=== PATIENT | female | born 1985 | race Asian ===

== ENCOUNTER 2018-07-15 00:26 | Observation (INO) | payer OTHER ==
[2018-07-15 01:14] LABS: URINE APPEARANCE CLEAR; URINE BILIRUBIN NEGATIVE (<2.0 mg/dL); URINE COLOR COLORLESS; URINE GLUCOSE (UA) NEGATIVE (NEGATIVE); URINE KETONE NEGATIVE (NEGATIVE); URINE LEUK ESTERASE NEGATIVE (NEGATIVE); URINE NITRITE NEGATIVE (NEGATIVE); URINE PROTEIN NEGATIVE (NEGATIVE); URINE UROBILINOGEN NEGATIVE mg/dL (0.2-1.0)
[2018-07-15 01:15] LABS: HCG,QUALITATIVE URINE Negative
[2018-07-15 01:44] LABS: BASO % 1.3 % (0-2.0); EOS % 0.7 % (0-4.5); HEMATOCRIT 28.3 % (32.4-45.2); HEMOGLOBIN 9.1 GM/dL (10.7-15.3); LYMPH % 46.2 % (8-40); MCH 23.1 pg (25.7-33.7); MCHC 32.2 g/dl (32.0-36.0); MEAN CELL VOLUME 71.6 fl (80-96); MEAN PLT VOLUME 9.2 fl (7.5-11.1); MONO % 11.5 % (3.8-10.2); NEUT % 40.3 % (42.8-82.8); PLATELET COUNT 133 K/MM3 (134-434); RBC 3.96 M/mm3 (3.60-5.2); RDW 18.6 % (11.6-15.6)
[2018-07-15 01:53] LABS: WHITE BLOOD COUNT 1.9 K/mm3 (4.0-10.0)
[2018-07-15 02:06] LABS: ALBUMIN 3.7 g/dl (3.4-5.0); ALK PHOS 36 U/L (45-117); ANION GAP 8 MMOL/L (8-16); BILIRUBIN,TOTAL 0.2 mg/dL (0.2-1); BLOOD UREA NITROGEN 12 mg/dL (7-18); CALCIUM 8.2 mg/dL (8.5-10.1); CHLORIDE 105 mmol/L (98-107); CO2 28 mmol/L (21-32); CREATININE 0.4 mg/dL (0.55-1.3); GLUCOSE,RANDOM 102 mg/dL (74-106); LIPASE 207 U/L (73-393); POTASSIUM 3.6 mmol/L (3.5-5.1); SGOT/AST 19 U/L (15-37); SGPT/ALT 22 U/L (13-61); SODIUM 141 mmol/L (136-145); TOT PROT 6.8 g/dl (6.4-8.2)
[2018-07-15 02:34] LABS: BASO % 1.5 % (0-2.0); EOS % 0.6 % (0-4.5); HEMATOCRIT 26.3 % (32.4-45.2); HEMOGLOBIN 8.5 GM/dL (10.7-15.3); LYMPH % 42.3 % (8-40); MCH 23.1 pg (25.7-33.7); MCHC 32.4 g/dl (32.0-36.0); MEAN CELL VOLUME 71.3 fl (80-96); MEAN PLT VOLUME 9.4 fl (7.5-11.1); MONO % 11.1 % (3.8-10.2); NEUT % 44.5 % (42.8-82.8); PLATELET COUNT 128 K/MM3 (134-434); RBC 3.69 M/mm3 (3.60-5.2); RDW 18.7 % (11.6-15.6)
[2018-07-15 02:40] LABS: WHITE BLOOD COUNT 1.9 K/mm3 (4.0-10.0)
--- NOTE | 2018-07-15 03:44 | PDOC ---
History of Present Illness - General Chief Complaint: Pain, Acute Stated Complaint: FEVER Time Seen by Provider: 07/15/18 01:03 History Source: Patient Exam Limitations: No Limitations - History of Present Illness Initial Comments: 07/15/18 03:43 Best Contact: PCP: Ryanx: 2017:Thyroid cancer Pshx: left Hemithyroidectomy Allergies: NKDA FH: Father/HTN (alive @63), Mother/healthy (alive@58) Social Hx: Cigarettes/ 0 Alcohol/ Drugs/ LMP: cyracom: [id number] 32-year-old female presents to the emergency department complaining of left- sided pelvic pain. Patient states the pain is described as 8/10 pressure-like nonradiating intermittent discomfort. There are no alleviating or exacerbating factors. Patient endorses fever 3 days, MAXIMUM TEMPERATURE 103.0 oral temp with chills but denies nausea/vomiting, dizziness, headache, lightheadedness, weakness, chest pain, shortness of breath, neck/back pains, flank pains, urinary symptoms: Urgency, frequency, hesitancy, hematuria. Patient denies left upper quadrant pain, unexplained ecchymosis or petechiae. Patient denies using any penicillin, sulfonamide, diuretic, phenothiazide.Patient denies feeling weak , unexplainable weight loss, nosebleeds, frequent infections. Patient states approximately one week ago she had a colonoscopy because she is been experiencing constipation for approximately one year . Her weight calculator removed a 4 cm polyp. Earlier this evening, patient went to her weight calculator to go over the report. He informed her that it was NOTcancerous. Pt had her colonoscopy in [place] x7d ago. Patient reports her first cousin on her father's side (father's brothers son) was dx and from Leukemia at a young age. Denies recent travel. Pt speaks Mandarin/Maori. Past History - Past Medical History Allergies/Adverse Reactions: Allergies Allergy/AdvReac Type Severity Reaction Status Date / Time No Known Allergies Allergy Verified 07/15/18 00:53 Home Medications: Ambulatory Orders NK [No Known Home Medication] 07/15/18 COPD: No Other medical history: Unspecified CA - Suicide/Smoking/Psychosocial Hx Smoking History: Never smoked Hx Alcohol Use: No Drug/Substance Use Hx: No Review of Systems - Review of Systems Able to Perform ROS?: Yes Comments:: 07/15/18 03:43 CONSTITUTIONAL: Absent: fever, chills, diaphoresis, generalized weakness, malaise, loss of appetite HEENT: Absent: rhinorrhea, nasal congestion, throat pain, throat swelling, difficulty swallowing, mouth swelling, ear pain, eye pain, visual Changes CARDIOVASCULAR: Absent: chest pain, loss of consciousness, palpitations, irregular heart rate, peripheral edema RESPIRATORY: Absent: cough, shortness of breath, dyspnea with exertion, orthopnea, wheezing, stridor, hemoptysis GASTROINTESTINAL: +Left pelvic pain Absent: abdominal pain, abdominal distension, nausea, vomiting, diarrhea, constipation, melena, hematochezia GENITOURINARY: Absent: dysuria, frequency, urgency, hesitancy, hematuria, flank pain, genital pain MUSCULOSKELETAL: Absent: myalgia, arthralgia, joint swelling SKIN: Absent: rash, itching, pallor HEMATOLOGIC/IMMUNOLOGIC: Absent: easy bleeding, easy bruising, lymphadenopathy, frequent infections ENDOCRINE: Absent: unexplained weight gain, unexplained weight loss, heat intolerance, cold intolerance NEUROLOGIC: Absent: headache, focal weakness or paresthesias, dizziness, unsteady gait, seizure, mental status changes, bladder or bowel incontinence PSYCHIATRIC: Absent: anxiety, depression, suicidal or homicidal ideation, hallucinations. Is the patient limited Vietnamese proficient: No *Physical Exam - Vital Signs Last Vital Signs Temp Pulse Resp BP Pulse Ox 98.4 F 64 20 109/72 100 07/15/18 01:36 07/15/18 01:36 07/15/18 00:28 07/15/18 01:36 07/15/18 01:36 - Physical Exam Comments: 07/15/18 03:43 GENERAL: Well developed, well nourished. Awake and alert. No acute distress. HEENT: Normocephalic, atraumatic. PERRLA, EOMI. No conjunctival pallor. Sclera are non- icteric. Moist mucous membranes. Oropharynx is clear. NECK: Supple. Full ROM. No JVD. Carotid pulses 2+ and symmetric, without bruits. No thyromegaly. No lymphadenopathy. CARDIOVASCULAR: Regular rate and rhythm. No murmurs, rubs, or gallops. Distal pulses are 2+ and symmetric. PULMONARY: No evidence of respiratory distress. Lungs clear to auscultation bilaterally. No wheezing, rales or rhonchi. ABDOMINAL: +Left pelvic pain on deep palp Soft. Non-distended. No rebound or guarding. No organomegaly. Normoactive bowel sounds. MUSCULOSKELETAL Normal range of motion at all joints. No bony deformities or tenderness. No CVA tenderness. EXTREMITIES: No cyanosis. No clubbing. No edema. No calf tenderness. SKIN: Warm and dry. Normal capillary refill. No rashes. No jaundice. NEUROLOGICAL: Alert, awake, appropriate. Cranial nerves 2-12 intact. No deficits to light touch and temperature in face, upper extremities and lower extremities. No motor deficits in the in face, upper extremities and lower extremities. Normoreflexic in the upper and lower extremities. Normal speech. Toes are down- going bilaterally. Gait is normal without ataxia. PSYCHIATRIC: Cooperative. Good eye contact. Appropriate mood and affect. Moderate Sedation - Procedure Monitoring Vital Signs: Procedure Monitoring Vital Signs Temperature 98.4 F 07/15/18 01:36 Pulse Rate 64 07/15/18 01:36 Respiratory Rate 20 07/15/18 00:28 Blood Pressure 109/72 07/15/18 01:36 O2 Sat by Pulse Oximetry (%) 100 07/15/18 01:36 ED Treatment Course - LABORATORY CBC & Chemistry Diagram: 07/15/18 02:07 07/15/18 01:20 - ADDITIONAL ORDERS Additional order review: Laboratory Results 07/15/18 07/15/18 01:20 00:49 Sodium 141 Potassium 3.6 Chloride 105 Carbon Dioxide 28 Anion Gap 8 BUN 12 Creatinine 0.4 L Creat Clearance w eGFR 182.72 Random Glucose 102 Calcium 8.2 L Total Bilirubin 0.2 AST 19 ALT 22 Alkaline Phosphatase 36 L Total Protein 6.8 Albumin 3.7 Lipase 207 Urine Color Colorless Urine Appearance Clear Urine pH 7.0 Ur Specific [place] 1.004 L Urine Protein Negative Urine Glucose (UA) Negative Urine Ketones Negative Urine Blood Negative Urine Nitrite Negative Urine Bilirubin Negative Urine Urobilinogen Negative Ur Leukocyte Esterase Negative Urine HCG, Qual Negative 07/15/18 07/15/18 02:07 01:20 RBC 3.69 3.96 MCV 71.3 L 71.6 L MCHC 32.4 32.2 RDW 18.7 H 18.6 H MPV 9.4 9.2 Neutrophils % 44.5 40.3 L Lymphocytes % 42.3 H 46.2 H Monocytes % 11.1 H 11.5 H Eosinophils % 0.6 0.7 Basophils % 1.5 1.3 - RADIOLOGY Radiology Studies Ordered: Category Date Time Status ABDOMEN & PELVIS CT W/O CONTR [CT] Stat CT Scan 07/15/18 02:08 Taken Radiograph Interpretation: 07/15/18 04:32 Transvaginal US: Neg ovarian torsion CT abd/pelvis w/o po and IV contrast: Nl *DC/Admit/Observation/Transfer Diagnosis at time of Disposition: Pelvic pain Leukopenia Qualifiers: Leukopenia type: unspecified Qualified Code(s): D72.819 - Decreased white blood cell count, unspecified - Discharge Dispostion Condition at time of disposition: Stable Decision to Admit order: Yes - Referrals - Patient Instructions - Post Discharge Activity Progress Note - Progress Note Progress Note: 0341hrs:Called [facility] and letter paster on [employer] [facility]. 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 I explained to the patient that some cases are easily diagnosis but others are not. Patient wanted a definitive diagnosis. Patient Stating that she had repeat blood draw shortly after the initial blood draw. I explained to the patient that her WBC was 1.9 and a had to be repeated for confirmation. I explained to the patient that we have to get blood cultures, influenza, urine culture. This is to rule out reasons of her leukopenia 0632hrs: Called Dr. Los Wood/ID for a consult [phone] 1911hrs: Spoke to Dr. Tadeo/covering ID service. Will consult pt If patient has a fever, ZOSYN IV
--- NOTE | 2018-07-15 04:11 | PDOC ---
*Physical Exam - Vital Signs Last Vital Signs Temp Pulse Resp BP Pulse Ox 98.4 F 64 20 109/72 100 07/15/18 01:36 07/15/18 01:36 07/15/18 00:28 07/15/18 01:36 07/15/18 01:36 ED Treatment Course - LABORATORY CBC & Chemistry Diagram: 07/15/18 02:07 07/15/18 01:20 - ADDITIONAL ORDERS Additional order review: Laboratory Results 07/15/18 07/15/18 01:20 00:49 Sodium 141 Potassium 3.6 Chloride 105 Carbon Dioxide 28 Anion Gap 8 BUN 12 Creatinine 0.4 L Creat Clearance w eGFR 182.72 Random Glucose 102 Calcium 8.2 L Total Bilirubin 0.2 AST 19 ALT 22 Alkaline Phosphatase 36 L Total Protein 6.8 Albumin 3.7 Lipase 207 Urine Color Colorless Urine Appearance Clear Urine pH 7.0 Ur Specific [place] 1.004 L Urine Protein Negative Urine Glucose (UA) Negative Urine Ketones Negative Urine Blood Negative Urine Nitrite Negative Urine Bilirubin Negative Urine Urobilinogen Negative Ur Leukocyte Esterase Negative Urine HCG, Qual Negative 07/15/18 07/15/18 02:07 01:20 RBC 3.69 3.96 MCV 71.3 L 71.6 L MCHC 32.4 32.2 RDW 18.7 H 18.6 H MPV 9.4 9.2 Neutrophils % 44.5 40.3 L Lymphocytes % 42.3 H 46.2 H Monocytes % 11.1 H 11.5 H Eosinophils % 0.6 0.7 Basophils % 1.5 1.3 Medical Decision Making - Medical Decision Making 07/15/18 04:10 Patient Name: SUNIL SALEEM THIS IS A PRELIMINARY REPORT FROM [employer] DATE OF SERVICE: 2018-07-15 03:02:07 IMAGES: [id number] EXAM: CT ABDOMEN \T\ PELVIS CT W/O CONTR HISTORY: Abdominal pain COMPARISON: None. FINDINGS: Abdomen Liver: Normal Spleen: Normal Pancreas: Normal Gallbladder: Normal Stomach: Normal Small bowel: Normal Large bowel: Normal Appendix: Normal Adrenals:Normal Kidneys: Normal Vascular: Normal Lymphatic: Normal Peritoneal: No free peritoneal air or fluid Pelvis: Uterus: normal Rectum: Normal Bladder: Normal The inferior thorax: Normal General: Skeletal: Normal Abdominal wall: Normal IMPRESSION: No acute findings 07/15/18 04:11 Patient Name: SUNIL SALEEM THIS IS A PRELIMINARY REPORT FROM [employer] DATE OF SERVICE: 2018-07-15 02:21:22 IMAGES: [id number] EXAM: TRANSVAGINAL ULTRASOUND US HISTORY: Pelvic pain COMPARISON: None. FINDINGS: Uterus measures 10.3 cm in length. The endometrium is 12 mm. Right ovary measures 4.0 x 2.3 x 2.4 cm. Doppler imaging demonstrates positive vascular flow. The left ovary measures 3.7 x 1.9 x 3.3 cm. Doppler imaging demonstrates positive vascular flow There is a small amount of pelvic fluid IMPRESSION: No ovarian torsion *DC/Admit/Observation/Transfer Diagnosis at time of Disposition: Leukopenia, Pelvic pain - Discharge Dispostion Condition at time of disposition: Stable - Referrals - Patient Instructions - Post Discharge Activity
[2018-07-15] MEDS ORDERED: morphine CARPU-JECT 2 MG/1 ML DISP.SYRIN IVPUSH ONE (05:14)
[2018-07-15] MEDS ORDERED: ONDANSETRON 4 MG/2 ML VIAL IVPUSH ONE (05:14)
[2018-07-15] MEDS ORDERED: morphine SULFATE 4 MG/ML VIAL ONE (05:16)
[2018-07-15] MEDS ORDERED: ONDANSETRON 4 MG/2 ML VIAL ONE (05:16)
[2018-07-15 05:46] LABS: ANISOCYTOSIS 2+; MACROCYTOSIS 0; PLATELET ESTIMATE NORMAL
--- NOTE | 2018-07-15 08:29 | PN ---
Teaching Attending Note Name of Resident: Deandre Crum ATTENDING PHYSICIAN STATEMENT I saw and evaluated the patient. I reviewed the resident's note and discussed the case with the resident. I agree with the resident's findings and plan as documented. SUBJECTIVE: [facility] # [id number] Patient is a 32yo Female with PMhx of partial thyroidectomy (2016) who presents today due to L-sided pelvic pain and fevers noted at home. As per patient was sick 3 weeks prior and was diagnosed with Viral syndrome and was given Zpack that she completed the course. Presents today for having Left pelvic pain, patient had dinner and post dinner developed left pelvic pain. Presented to ED. for further care. Also was c/o having clear vaginal discharge , patient refused to have vaginal exam in ED. OBJECTIVE: Vital Signs Temperature 98.6 F 07/15/18 06:18 Pulse Rate 64 07/15/18 06:18 Respiratory Rate 18 07/15/18 06:18 Blood Pressure 105/68 07/15/18 06:18 O2 Sat by Pulse Oximetry (%) 99 07/15/18 06:18 GENERAL: Awake, alert, and fully oriented, in no acute distress. HEENT: NC/AT, PRACHI, sclera anicteric, no ulcerations of oral mucosa, no erythema or exudates of the posterior oropharynx, MMM Neck: Soft, supple, no lymphadenopathy, thyroidectomy scar noted LUNGS: CTA bilaterally. No wheezes, and no crackles. No accessory muscle use. HEART: RRR normal S1 and S2 without murmur ABDOMEN: Soft, left pelvic mild pain on palpation , ND, NR, minimal tenderness of lower pelvic/LLQ palpation, normoactive BS, no rebound, no masses, no splenomegaly or hepatomegaly per palpation. EXTREMITIES: 2+ radial pulses b/l, warm, well-perfused. No peripheral edema. PSYCHIATRIC: Cooperative. Good eye contact. Appropriate mood and affect. SKIN: Warm, dry, no rashes or lesions notedCBCD WBC 1.9 K/mm3 (4.0-10.0) L* 07/15/18 02:07 RBC 3.69 M/mm3 (3.60-5.2) 07/15/18 02:07 Hgb 8.5 GM/dL (10.7-15.3) L 07/15/18 02:07 Hct 26.3 % (32.4-45.2) L 07/15/18 02:07 MCV 71.3 fl (80-96) L 07/15/18 02:07 MCHC 32.4 g/dl (32.0-36.0) 07/15/18 02:07 RDW 18.7 % (11.6-15.6) H 07/15/18 02:07 Plt Count 128 K/MM3 (134-434) L 07/15/18 02:07 MPV 9.4 fl (7.5-11.1) 07/15/18 02:07 CMP Sodium 141 mmol/L (136-145) 07/15/18 01:20 Potassium 3.6 mmol/L (3.5-5.1) 07/15/18 01:20 Chloride 105 mmol/L (98-107) 07/15/18 01:20 Carbon Dioxide 28 mmol/L (21-32) 07/15/18 01:20 Anion Gap 8 MMOL/L (8-16) 07/15/18 01:20 BUN 12 mg/dL (7-18) 07/15/18 01:20 Creatinine 0.4 mg/dL (0.55-1.3) L 07/15/18 01:20 Creat Clearance w eGFR 182.72 (>60) 07/15/18 01:20 Random Glucose 102 mg/dL (74-106) 07/15/18 01:20 Calcium 8.2 mg/dL (8.5-10.1) L 07/15/18 01:20 Total Bilirubin 0.2 mg/dL (0.2-1) 07/15/18 01:20 AST 19 U/L (15-37) 07/15/18 01:20 ALT 22 U/L (13-61) 07/15/18 01:20 Alkaline Phosphatase 36 U/L (45-117) L 07/15/18 01:20 Total Protein 6.8 g/dl (6.4-8.2) 07/15/18 01:20 Albumin 3.7 g/dl (3.4-5.0) 07/15/18 01:20 Hepatic Panel Total Bilirubin 0.2 mg/dL (0.2-1) 07/15/18 01:20 AST 19 U/L (15-37) 07/15/18 01:20 ALT 22 U/L (13-61) 07/15/18 01:20 Alkaline Phosphatase 36 U/L (45-117) L 07/15/18 01:20 Albumin 3.7 g/dl (3.4-5.0) 07/15/18 01:20 Urine Test Results Urine Color Colorless 07/15/18 00:49 Urine Appearance Clear 07/15/18 00:49 Urine pH 7.0 (5.0-8.0) 07/15/18 00:49 Ur Specific [place] 1.004 (1.010-1.035) L 07/15/18 00:49 Urine Protein Negative (NEGATIVE) 07/15/18 00:49 Urine Glucose (UA) Negative (NEGATIVE) 07/15/18 00:49 Urine Ketones Negative (NEGATIVE) 07/15/18 00:49 Urine Blood Negative (NEGATIVE) 07/15/18 00:49 Urine Nitrite Negative (NEGATIVE) 07/15/18 00:49 Urine Bilirubin Negative (<2.0 mg/dL) 07/15/18 00:49 Ur Leukocyte Esterase Negative (NEGATIVE) 07/15/18 00:49 ASSESSMENT AND PLAN: Patient is a 32yo Female with PMhx of partial thyroidectomy (2017) who presents today due to L-sided pelvic pain and fevers noted at home. As per patient was sick 3 weeks prior and was diagnosed with Viral syndrome and was given Zpack that she completed the course. Presents today for having Left pelvic pain, patient had dinner and post dinner developed left pelvic pain. Presented to ED. for further care. While in Ed.was found to have Pancytopenia. # Acute Pancytopenia; will repeat the levels in am for follow up , ID and hem consult appreciated. ordered Parvovirus. # Leukopenia # neutropenia # Hiv testing, isolation neutopenic, discussed with ID patient wanted to leave AMA, after explaining to her , wanted to stay. culture ordered. will ask the patient to follow up with her OBGYN, GC/chlamydia urine ordered. DVT Px: early ambulation
[2018-07-15] MEDS ORDERED: ACETAMINOPHEN 325 MG TABLET (FP) PO PRN (09:18)
--- NOTE | 2018-07-15 09:36 | HP ---
CHIEF COMPLAINT: Fever and pelvic pain PCP: Dr. Phillips/Dr. Myron Garcia ([place]; [phone]) HISTORY OF PRESENT ILLNESS: 32yo F with only history of prior partial thyroidectomy (2016) who presents today due to L-sided pelvic pain and fevers noted at home. Pt speaks Montenegrin as well as Mandarin Indonesian and some history was obtained while using [employer] phone #[phone]. Pt reports that she had a colonoscopy [address] Isaias Peralta ([place]) where they performed a polypectomy 4mm mass which was reportedly negative for malignancy. Pt reports this past Monday going to work and not feeling well with subjective fevers. She took medication for her fever ( unknown exactly which) and her fever went down, however she remained with general malaise. Pt reports on Monday she again had fevers (once in morning) and then was woken up on Monday night with fevers, chills, and L-sided pelvic pain. She woke up her and they came to the ER for further evaluation. Pt currently still has L-sided pelvic pain near her suprapubic region which she cannot exactly describe in character. She has not had any fevers since being in the ER. Pt reports only taking her pain/fever medication (suspect ibuprofen), and Culterelle probiotic. She had a partial thyroidectomy for suspected malignancy in 2016, however was never on chemo/radiation treatment and never on any medications for such. Pt has never been tested for HIV and she has not travelled recently. Pt denies any headaches, lightheadedness, shortness of breath, chest pain, palpitations, dysuria, polyuria, irregular menstrual cycles , heavier flow menstrual cycles. Denies any bruising or bleeding episodes, frequent illness (last illness was 2 weeks prior with flu-like symptoms, however all resolved). Recent Travel: Denies PAST MEDICAL HISTORY: Denies PAST SURGICAL HISTORY: Partial thyroidectomy (2016; [place]) Colonoscopy (06/2018; one week prior; Dr. Isaias Peralta's office) Social History: Smoking: Denies Alcohol: Denies Drugs: Denies In monogamous relationship with , never tested for HIV prior. Has 2 children at home. 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 HEENT: NC/AT, PRACHI, sclera anicteric, no ulcerations of oral mucosa, no erythema or exudates of the posterior oropharynx, MMM Neck: Soft, no TTP, (LN exam performed by ID while at bedside w/o any cervical, submandibular lymphadenopathy; note R axillary minimal Ln enlargement). Thyroidectomy scar noted LUNGS: CTA bilaterally. No wheezes, and no crackles. No accessory muscle use. HEART: RRR normal S1 and S2 without murmur ABDOMEN: Soft, nondistended, minimal tenderness of lower pelvic/LLQ palpation, normoactive BS, no bruits auscultated, no rebound, no masses, no splenomegaly or hepatomegaly per palpation. EXTREMITIES: 2+ radial pulses b/l, warm, well-perfused. No peripheral edema. PSYCHIATRIC: Cooperative. Good eye contact. Appropriate mood and affect. SKIN: Warm, dry, no rashes or lesions noted Laboratory Results 07/15/18 07/15/18 07/15/18 00:49 01:20 01:20 WBC 1.9 L* RBC 3.96 Hgb 9.1 L Hct 28.3 L MCV 71.6 L MCH 23.1 L MCHC 32.2 RDW 18.6 H Plt Count 133 L MPV 9.2 Absolute Neuts (auto) 0.8 L Neutrophils % 40.3 L Neutrophils % (Manual) 33.0 L Band Neutrophils % 10.0 Lymphocytes % 46.2 H Lymphocytes % (Manual) 47.0 H Monocytes % 11.5 H Monocytes % (Manual) 3 L Eosinophils % 0.7 Eosinophils % (Manual) 0.0 Basophils % 1.3 Basophils % (Manual) 1.0 Myelocytes % (Man) 0 Promyelocytes % (Man) 0 Blast Cells % (Manual) 0 Nucleated RBC % 0 Metamyelocytes 0 Hypochromia 0 Platelet Estimate Normal Polychromasia 0 Poikilocytosis 1+ Anisocytosis 2+ Microcytosis 2+ Macrocytosis 0 Sodium 141 Potassium 3.6 Chloride 105 Carbon Dioxide 28 Anion Gap 8 BUN 12 Creatinine 0.4 L Creat Clearance w eGFR 182.72 Random Glucose 102 Calcium 8.2 L Total Bilirubin 0.2 AST 19 ALT 22 Alkaline Phosphatase 36 L Total Protein 6.8 Albumin 3.7 Lipase 207 Urine Color Colorless Urine Appearance Clear Urine pH 7.0 Ur Specific [place] 1.004 L Urine Protein Negative Urine Glucose (UA) Negative Urine Ketones Negative Urine Blood Negative Urine Nitrite Negative Urine Bilirubin Negative Urine Urobilinogen Negative Ur Leukocyte Esterase Negative Urine HCG, Qual Negative Influenza A (Rapid) Influenza B (Rapid) 07/15/18 02:07 WBC 1.9 L* RBC 3.69 Hgb 8.5 L Hct 26.3 L MCV 71.3 L MCH 23.1 L MCHC 32.4 RDW 18.7 H Plt Count 128 L MPV 9.4 Absolute Neuts (auto) 0.8 L Neutrophils % 44.5 Neutrophils % (Manual) No Result Required. Band Neutrophils % Lymphocytes % 42.3 H Lymphocytes % (Manual) Monocytes % 11.1 H Monocytes % (Manual) Eosinophils % 0.6 Eosinophils % (Manual) Basophils % 1.5 Basophils % (Manual) Myelocytes % (Man) Promyelocytes % (Man) Blast Cells % (Manual) Nucleated RBC % 0 Metamyelocytes Hypochromia Platelet Estimate Polychromasia Poikilocytosis Anisocytosis Microcytosis Macrocytosis Sodium Potassium Chloride Carbon Dioxide Anion Gap BUN Creatinine Creat Clearance w eGFR Random Glucose Calcium Total Bilirubin AST ALT Alkaline Phosphatase Total Protein Albumin Lipase Urine Color Urine Appearance Urine pH Ur Specific [place] Urine Protein Urine Glucose (UA) Urine Ketones Urine Blood Urine Nitrite Urine Bilirubin Urine Urobilinogen Ur Leukocyte Esterase Urine HCG, Qual Influenza A (Rapid) Negative Influenza B (Rapid) Negative ASSESSMENT/PLAN: Pancytopenia Fever of unknown origin Pelvic pain --Obtained pt's GI and PCP and will call for prior records/labwork in addition to colonoscopy note --Will test for Parvovirus, HIV (pt consented verbally to me during exam), TSH/ Free T4 --ID on board and appreciated recommendations --If pt is noted to have fever can initiate on Zosyn for broadspectrum coverage while finding exact source --F/u Bcx and UCx --Possibility of bone marrow biopsy if continued workup remains negative; consider Hematology consult --CT A/P images reviewed by me, awaiting final read per radiology --Transvaginal US noted; pelvic free fluid noted --? if pain is related to polypectomy vs. ovarian cyst rupture; likely noncontributor towards fever and pancytopenic picture --Tylenol 650mg PRN for pain at the moment; can escalate if no relief occurs FEN: Fluids: None indicated; encourage PO Electrolyte abnormalities: none Nutrition: Neutropenic diet PPX: DVT - Low risk given thrombocytopenia, early ambulation vs. SCDs GI - Not indicated Dispo: M/S Observation Case to be discussed Deandre Crum DO - IM PGY-2 Visit type - Emergency Visit Emergency Visit: Yes ED Registration Date: 07/15/18 Care time: The patient presented to the Emergency Department on the above date and was hospitalized for further evaluation of their emergent condition. - New Patient This patient is new to me today: Yes Date on this admission: 07/15/18 - Critical Care Critical Care patient: No
--- NOTE | 2018-07-15 10:13 | PN ---
Progress Note (short form) - Note Progress Note: ID consult dictated imp/rccd Leukopenia with neutropenia fever at home unclear how much- now she thinks 100.3- left sided lower abdominal pain -started yesterday has not been feeling well for last 3 days last night noted pain left upper inguinal area and came to ED recent colonoscopoy, actually went to [place] where all her medical care is and saw the gi doctor- she had no pain then! ct scan in ED normal has not had any tylenol and has been afebrile since arrival in ED last night on exam has very minimal point tenderness no reboun or guarding just left lateral to her suprpubic area of note WBC is 1.9- would try to contact her PMD for prior labs f/u cultures start zosyn if she has fever parvovirus hiv consider henatology consult check ldh d/w admitting service patient seen in ER Problem List - Problems (1) Leukopenia Code(s): D72.819 - DECREASED WHITE BLOOD CELL COUNT, UNSPECIFIED Qualifiers: Leukopenia type: unspecified Qualified Code(s): D72.819 - Decreased white blood cell count, unspecified (2) Pelvic pain Code(s): R10.2 - PELVIC AND PERINEAL PAIN
[2018-07-15 13:41] VITALS: BMI 21.7
[2018-07-15] MEDS ORDERED: SODIUM CHLORIDE 1,000 ML IV SCH (15:45)
--- NOTE | 2018-07-15 18:12 | CONS ---
DATE OF CONSULTATION: 07/15/2018 REQUESTED BY: Hospitalist service. This is a 32-year-old woman who has a history of a partial thyroidectomy in 2017, recent colonoscopy 1 week prior to ER evaluation, for chronic constipation, at which time she had a polypectomy. She presents with a history of 3 days of subjective fevers at home. She, on , felt unwell. She took some fever-lowering medicine, she does not know what. She took her temperature, which she thinks was 100.3, not 103 as earlier told to the ER doctor. She then felt okay. She went to work the next day. 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 After she got there, she again felt unwell. She went home. She was fine the rest of the day. On Monday, she took pain medications again. She went to see her honing machine operator in followup, who told her that the biopsy was benign. She mentioned that she thought she had been having fevers, which she did not attribute to her procedure. She had no abdominal pain at that time. She came home. She went out to dinner with her family, and upon return home, again felt unwell, at which point she had this pain 4/10 on the left side near her suprapubic region and she came to the ER. She is monogamous. She has 2 children. She denies any headache. She denies any nausea, vomiting, diarrhea, dysuria, skin rash. There has been no recent travel. Sick contacts: About 2 to 3 weeks ago, she reports she and her both had the flu. This time she reports she has no cough and does not feel flu-like at all. In the emergency room, since she has arrived, which was at midnight, she has not had a fever and she has not had any Tylenol or Motrin. Her past medical history is notable for the partial thyroidectomy (she does not take any thyroid replacement), and the recent colonoscopy. She has no known drug allergies. She takes no medicines. She denies any substance use. She is from [place]. She has never had an HIV test and she works at a restaurant. Family history is notable for a brother with leukemia. Review of systems is as per HPI. PHYSICAL EXAMINATION: General: She is awake and alert. She appears very comfortable. Vital Signs: She has been afebrile with a temperature of 98.6. Pulse 64. Blood pressure 105/68. Respiratory rate 18. Saturating 99% on room air. HEENT: Normocephalic. Her eyes are anicteric. Neck: Supple. Lungs: Clear to auscultation. Heart: Regular rate and rhythm. Abdomen: Soft, nontender. She did not have any palpable adenopathy. Extremities: Without edema. Skin: She has no skin rash. Her labs are notable for a white count of 1.9. That was repeated and was again 1.9, hemoglobin 8.5, platelets 128. Her differential is notable for 42% lymphocytes. Chemistries are normal. Urinalysis is negative, as well as a test, and influenza screen is negative. She refused pelvic exam in the ER. Abdominopelvic CT final results are pending. Prelim is negative. There is no adenopathy, and she had a transvaginal ultrasound that showed a small right ovarian cyst. Her labs were as stated before. In summary, this is a 32-year-old woman admitted with fevers at home, leukopenia with neutropenia here in the hospital. She has been afebrile since admission. Blood cultures have been drawn. If she has fever, I would start Zosyn. I would consider, if indeed this leukopenia is new, would send Parvovirus serology. Would check her HIV. Her LFTs are normal, making EBV and CMV less likely. I would consider hematology consult as well. We could check an LDH as well. Further recommendations to follow. The case was discussed with the admitting service. NANETTE HEAD M.D. [id number]
[2018-07-16 07:32] LABS: BASO % 1.3 % (0-2.0); EOS % 0.8 % (0-4.5); HEMATOCRIT 27.5 % (32.4-45.2); HEMOGLOBIN 8.8 GM/dL (10.7-15.3); LYMPH % 52.5 % (8-40); MCH 22.8 pg (25.7-33.7); MCHC 32.1 g/dl (32.0-36.0); MEAN CELL VOLUME 70.9 fl (80-96); MEAN PLT VOLUME 9.2 fl (7.5-11.1); MONO % 6.2 % (3.8-10.2); NEUT % 39.2 % (42.8-82.8); PLATELET COUNT 127 K/MM3 (134-434); RBC 3.87 M/mm3 (3.60-5.2); RDW 18.3 % (11.6-15.6)
[2018-07-16 07:38] LABS: WHITE BLOOD COUNT 1.9 K/mm3 (4.0-10.0)
[2018-07-16 08:02] LABS: ALBUMIN 3.6 g/dl (3.4-5.0); ALK PHOS 31 U/L (45-117); ANION GAP 6 MMOL/L (8-16); BILIRUBIN,TOTAL 0.4 mg/dL (0.2-1); BLOOD UREA NITROGEN 5 mg/dL (7-18); CHLORIDE 106 mmol/L (98-107); CO2 26 mmol/L (21-32); CREATININE 0.4 mg/dL (0.55-1.3); GLUCOSE,RANDOM 77 mg/dL (74-106); LDH 153 U/L (84-246); PHOSPHOROUS 3.2 mg/dL (2.5-4.9); POTASSIUM 3.6 mmol/L (3.5-5.1); SGOT/AST 22 U/L (15-37); SGPT/ALT 22 U/L (13-61); SODIUM 137 mmol/L (136-145); TOT PROT 6.6 g/dl (6.4-8.2)
[2018-07-16 10:33] LABS: ANISOCYTOSIS 2+; MACROCYTOSIS 0; PLATELET ESTIMATE DECREASED; TEAR DROP CELLS 1+
[2018-07-16 17:43] LABS: INR 0.97 (0.83-1.09); PROTHROMBIN TIME (PATIENT) 11.5 SEC (9.7-13.0)
[2018-07-16 17:45] LABS: ACTIVATED PTT 33.4 SECONDS (25.2-36.5)
[2018-07-16 18:13] VITALS: BP 103/60; PULSE 65; TEMP 98.6
--- NOTE | 2018-07-16 18:17 | DS ---
Physical Exam: SUBJECTIVE: Patient seen and examined at bedside. Anxious to return home. OBJECTIVE: Vital Signs Period Temp Pulse Resp BP Sys/Monroe Pulse Ox Last 24 Hr 97.8 F-99.6 F 65-77 17-20 98-124/58-78 100-100 PHYSICAL EXAM GENERAL:AAOX3 NAD HEAD: Normal with no signs of trauma. EYES: EOMI Sclera clear ENT: MMM NECK: Trachea midline, full range of motion, supple. LUNGS: CTAB HEART: RRR nl s1s2 ABDOMEN: NDNT No HSM EXTREMITIES: 2+ pulses, warm, well-perfused, no edema. NEUROLOGICAL: Cranial nerves II through XII grossly intact. . PSYCH: Normal mood, normal affect. SKIN: No rashes or lesions appreciated LABS Laboratory Results - last 24 hr 07/15/18 07/16/18 07/16/18 10:14 05:30 05:30 WBC 1.9 L* RBC 3.87 Hgb 8.8 L Hct 27.5 L MCV 70.9 L MCH 22.8 L MCHC 32.1 RDW 18.3 H Plt Count 127 L MPV 9.2 Absolute Neuts (auto) 0.7 L Neutrophils % 39.2 L Neutrophils % (Manual) 35.1 L Band Neutrophils % 0.0 Lymphocytes % 52.5 H D Lymphocytes % (Manual) 55.3 H Monocytes % 6.2 Monocytes % (Manual) 3 L Eosinophils % 0.8 Eosinophils % (Manual) 2.1 D Basophils % 1.3 Basophils % (Manual) 0.0 Myelocytes % (Man) 0 Promyelocytes % (Man) 0 Blast Cells % (Manual) 0 Nucleated RBC % 0 Metamyelocytes 0 Hypochromia 2+ Platelet Estimate Decreased Polychromasia 0 Poikilocytosis 2+ Anisocytosis 2+ Microcytosis 2+ Macrocytosis 0 Tear Drop Cells 1+ ESR Retic Count PT with INR INR PTT (Actin FS) Sodium 137 Potassium 3.6 Chloride 106 Carbon Dioxide 26 Anion Gap 6 L BUN 5 L Creatinine 0.4 L Creat Clearance w eGFR 182.72 Random Glucose 77 Calcium 8.0 L Phosphorus 3.2 Magnesium 2.0 Ferritin Total Bilirubin 0.4 AST 22 ALT 22 Alkaline Phosphatase 31 L LD Total 153 C-Reactive Protein Total Protein 6.6 Albumin 3.6 Rheumatoid Factor HIV Genotype Non reactive 07/16/18 07/16/18 07/16/18 05:30 05:30 05:30 WBC RBC Hgb Hct MCV MCH MCHC RDW Plt Count MPV Absolute Neuts (auto) Neutrophils % Neutrophils % (Manual) Band Neutrophils % Lymphocytes % Lymphocytes % (Manual) Monocytes % Monocytes % (Manual) Eosinophils % Eosinophils % (Manual) Basophils % Basophils % (Manual) Myelocytes % (Man) Promyelocytes % (Man) Blast Cells % (Manual) Nucleated RBC % Metamyelocytes Hypochromia Platelet Estimate Polychromasia Poikilocytosis Anisocytosis Microcytosis Macrocytosis Tear Drop Cells ESR 19 Retic Count 0.11 L PT with INR INR PTT (Actin FS) Sodium Potassium Chloride Carbon Dioxide Anion Gap BUN Creatinine Creat Clearance w eGFR Random Glucose Calcium Phosphorus Magnesium Ferritin Total Bilirubin AST ALT Alkaline Phosphatase LD Total C-Reactive Protein 0.4 H Total Protein Albumin Rheumatoid Factor HIV Genotype 07/16/18 07/16/18 07/16/18 16:10 16:45 16:45 WBC RBC Hgb Hct MCV MCH MCHC RDW Plt Count MPV Absolute Neuts (auto) Neutrophils % Neutrophils % (Manual) Band Neutrophils % Lymphocytes % Lymphocytes % (Manual) Monocytes % Monocytes % (Manual) Eosinophils % Eosinophils % (Manual) Basophils % Basophils % (Manual) Myelocytes % (Man) Promyelocytes % (Man) Blast Cells % (Manual) Nucleated RBC % Metamyelocytes Hypochromia Platelet Estimate Polychromasia Poikilocytosis Anisocytosis Microcytosis Macrocytosis Tear Drop Cells ESR 25 H Retic Count PT with INR 11.50 INR 0.97 PTT (Actin FS) 33.4 Sodium Potassium Chloride Carbon Dioxide Anion Gap BUN Creatinine Creat Clearance w eGFR Random Glucose Calcium Phosphorus Magnesium Ferritin Total Bilirubin AST ALT Alkaline Phosphatase LD Total C-Reactive Protein 0.4 H Total Protein Albumin Rheumatoid Factor < 10.0 HIV Genotype 07/16/18 16:45 WBC RBC Hgb Hct MCV MCH MCHC RDW Plt Count MPV Absolute Neuts (auto) Neutrophils % Neutrophils % (Manual) Band Neutrophils % Lymphocytes % Lymphocytes % (Manual) Monocytes % Monocytes % (Manual) Eosinophils % Eosinophils % (Manual) Basophils % Basophils % (Manual) Myelocytes % (Man) Promyelocytes % (Man) Blast Cells % (Manual) Nucleated RBC % Metamyelocytes Hypochromia Platelet Estimate Polychromasia Poikilocytosis Anisocytosis Microcytosis Macrocytosis Tear Drop Cells ESR Retic Count PT with INR INR PTT (Actin FS) Sodium Potassium Chloride Carbon Dioxide Anion Gap BUN Creatinine Creat Clearance w eGFR Random Glucose Calcium Phosphorus Magnesium Ferritin 127.8 Total Bilirubin AST ALT Alkaline Phosphatase LD Total C-Reactive Protein Total Protein Albumin Rheumatoid Factor HIV Genotype HOSPITAL COURSE: Date of Admission:07/15/18 Pt is a 32yo F with only history of prior partial thyroidectomy (2016) who presented to [facility] due to L-sided pelvic pain and fevers noted at home. Pt's CBC revealed pancytopenia with a WBC of 1.9. I.D and Heme were consulted. Pt was tested for Erliciosis, babesiosis, parvovirus, and HIV. HIV was negative. Pt signed out AMA before complete work-up could be performed. Pt was explained in detail by Dr Singh that signing out AMA put pt at severe risk of opportunistic infections and further decline in health and possibly . Pt was informed to wear a mask at all times, not consume food cooked outside of the home, and to follow up immediately with hematology and her primary care doctor. [employer] was used for interpretation. Pt will be contacted by our team of results of her tests. Date of Discharge: 07/16/18 Minutes to complete discharge: 35 Discharge Summary Reason For Visit: PAIN IN PELVIS/LEUKOPENIA Condition: Stable - Instructions Referrals: Justice Tyson MD [Staff Physician] - 1 Week Disposition: AGAINST MEDICAL ADVICE - Home Medications Comprehensive Discharge Medication List: Ambulatory Orders NK [No Known Home Medication] 07/15/18 This patient is new to me today: Yes Date on this admission: 07/16/18 Emergency Visit: Yes ED Registration Date: 07/15/18 Care time: The patient presented to the Emergency Department on the above date and was hospitalized for further evaluation of their emergent condition. Critical Care patient: No - Discharge Referral Referred to [facility] Med P.C.: No
--- NOTE | 2018-07-16 19:44 | PN ---
Teaching Attending Note Name of Resident: Russ Small ATTENDING PHYSICIAN STATEMENT I saw and evaluated the patient. I reviewed the resident's note and discussed the case with the resident. I agree with the resident's findings and plan as documented. SUBJECTIVE: Patient is feeling better , no further pain. used [employer] #[id number] Gabi, as per patient wants to go home , since feeling better. OBJECTIVE: Vital Signs Temperature 98.6 F 07/16/18 17:00 Pulse Rate 65 07/16/18 17:00 Respiratory Rate 20 07/16/18 17:00 Blood Pressure 103/60 07/16/18 17:00 O2 Sat by Pulse Oximetry (%) 100 07/16/18 12:00 GENERAL: Awake, alert, and fully oriented, in no acute distress. HEENT: NC/AT, PRACHI, sclera anicteric, no ulcerations of oral mucosa, no erythema or exudates of the posterior oropharynx, MMM Neck: Soft, supple, no lymphadenopathy, thyroidectomy scar noted LUNGS: CTA bilaterally. No wheezes, and no crackles. No accessory muscle use. HEART: RRR normal S1 and S2 without murmur ABDOMEN: Soft, left pelvic mild pain on palpation , ND, NR, minimal tenderness of lower pelvic/LLQ palpation, normoactive BS, no rebound, no masses, no splenomegaly or hepatomegaly per palpation. EXTREMITIES: 2+ radial pulses b/l, warm, well-perfused. No peripheral edema. PSYCHIATRIC: Cooperative. Good eye contact. Appropriate mood and affect. SKIN: Warm, dry, no rashes or lesions noted CBCD WBC 1.9 K/mm3 (4.0-10.0) L* 07/16/18 05:30 RBC 3.87 M/mm3 (3.60-5.2) 07/16/18 05:30 Hgb 8.8 GM/dL (10.7-15.3) L 07/16/18 05:30 Hct 27.5 % (32.4-45.2) L 07/16/18 05:30 MCV 70.9 fl (80-96) L 07/16/18 05:30 MCHC 32.1 g/dl (32.0-36.0) 07/16/18 05:30 RDW 18.3 % (11.6-15.6) H 07/16/18 05:30 Plt Count 127 K/MM3 (134-434) L 07/16/18 05:30 MPV 9.2 fl (7.5-11.1) 07/16/18 05:30 CMP Sodium 137 mmol/L (136-145) 07/16/18 05:30 Potassium 3.6 mmol/L (3.5-5.1) 07/16/18 05:30 Chloride 106 mmol/L (98-107) 07/16/18 05:30 Carbon Dioxide 26 mmol/L (21-32) 07/16/18 05:30 Anion Gap 6 MMOL/L (8-16) L 07/16/18 05:30 BUN 5 mg/dL (7-18) L 07/16/18 05:30 Creatinine 0.4 mg/dL (0.55-1.3) L 07/16/18 05:30 Creat Clearance w eGFR 182.72 (>60) 07/16/18 05:30 Random Glucose 77 mg/dL (74-106) 07/16/18 05:30 Calcium 8.0 mg/dL (8.5-10.1) L 07/16/18 05:30 Total Bilirubin 0.4 mg/dL (0.2-1) 07/16/18 05:30 AST 22 U/L (15-37) 07/16/18 05:30 ALT 22 U/L (13-61) 07/16/18 05:30 Alkaline Phosphatase 31 U/L (45-117) L 07/16/18 05:30 Total Protein 6.6 g/dl (6.4-8.2) 07/16/18 05:30 Albumin 3.6 g/dl (3.4-5.0) 07/16/18 05:30 Home Medications Medication Instructions Recorded NK [No Known Home Medication] 07/15/18 Laboratory Tests 07/15/18 07/15/18 07/15/18 02:07 04:36 08:20 WBC 1.9 L* ESR Retic Count Fibrinogen Ferritin C-Reactive Protein Vitamin B12 Folate Folate Hemolysate Rheumatoid Factor KEESHA Screen Anti-Parietal Cell Ab Intrinsic Factor Ab Babesia microti IgG Ab Babesia microti IgM Ab Lyme Screen IgG & IgM Hepatitis A Ab Total Hep Bs Antigen Hep Bs Antibody Hep B Core Total Ab HIV Genotype Influenza A (Rapid) Negative Influenza B (Rapid) Negative Parvovirus B19 IgG Ab Pending Parvovirus B19 IgM Ab Pending 07/15/18 07/16/18 07/16/18 10:14 05:30 05:30 WBC 1.9 L* ESR Retic Count 0.11 L Fibrinogen Ferritin C-Reactive Protein Vitamin B12 Folate Folate Hemolysate Rheumatoid Factor KEESHA Screen Anti-Parietal Cell Ab Intrinsic Factor Ab Babesia microti IgG Ab Babesia microti IgM Ab Lyme Screen IgG & IgM Hepatitis A Ab Total Hep Bs Antigen Hep Bs Antibody Hep B Core Total Ab HIV Genotype Non reactive Influenza A (Rapid) Influenza B (Rapid) Parvovirus B19 IgG Ab Parvovirus B19 IgM Ab 07/16/18 07/16/18 07/16/18 05:30 05:30 10:40 WBC ESR 19 Retic Count Fibrinogen Ferritin C-Reactive Protein 0.4 H Vitamin B12 Folate Folate Hemolysate Rheumatoid Factor KEEHSA Screen Anti-Parietal Cell Ab Intrinsic Factor Ab Babesia microti IgG Ab Pending Babesia microti IgM Ab Pending Lyme Screen IgG & IgM Pending Hepatitis A Ab Total Hep Bs Antigen Hep Bs Antibody Hep B Core Total Ab HIV Genotype Influenza A (Rapid) Influenza B (Rapid) Parvovirus B19 IgG Ab Parvovirus B19 IgM Ab 07/16/18 07/16/18 07/16/18 16:10 16:45 16:45 WBC ESR 25 H Retic Count Fibrinogen Ferritin C-Reactive Protein 0.4 H Vitamin B12 521 Folate Folate Hemolysate Rheumatoid Factor < 10.0 KEESHA Screen Anti-Parietal Cell Ab Intrinsic Factor Ab Babesia microti IgG Ab Babesia microti IgM Ab Lyme Screen IgG & IgM Hepatitis A Ab Total Hep Bs Antigen Hep Bs Antibody Hep B Core Total Ab HIV Genotype Influenza A (Rapid) Influenza B (Rapid) Parvovirus B19 IgG Ab Parvovirus B19 IgM Ab 07/16/18 07/16/18 07/16/18 16:45 16:45 16:45 WBC ESR Retic Count Fibrinogen 303.0 Ferritin C-Reactive Protein Vitamin B12 Folate Pending Folate Hemolysate Pending Rheumatoid Factor KEESHA Screen Pending Anti-Parietal Cell Ab Pending Intrinsic Factor Ab Pending Babesia microti IgG Ab Babesia microti IgM Ab Lyme Screen IgG & IgM Hepatitis A Ab Total Pending Hep Bs Antigen Pending Hep Bs Antibody Pending Hep B Core Total Ab Pending HIV Genotype Influenza A (Rapid) Influenza B (Rapid) Parvovirus B19 IgG Ab Parvovirus B19 IgM Ab 07/16/18 16:45 WBC ESR Retic Count Fibrinogen Ferritin 127.8 C-Reactive Protein Vitamin B12 Folate Folate Hemolysate Rheumatoid Factor KEESHA Screen Anti-Parietal Cell Ab Intrinsic Factor Ab Babesia microti IgG Ab Babesia microti IgM Ab Lyme Screen IgG & IgM Hepatitis A Ab Total Hep Bs Antigen Hep Bs Antibody Hep B Core Total Ab HIV Genotype Influenza A (Rapid) Influenza B (Rapid) Parvovirus B19 IgG Ab Parvovirus B19 IgM Ab ASSESSMENT AND PLAN: Patient is a 32yo Female with PMhx of partial thyroidectomy (2016) who presents today due to L-sided pelvic pain and fevers noted at home. As per patient was sick 3 weeks prior and was diagnosed with Viral syndrome and was given Zpack that she completed the course. Presents today for having Left pelvic pain, patient had dinner and post dinner developed left pelvic pain. Presented to ED. for further care. While in Ed.was found to have Pancytopenia. # Acute Pancytopenia; No change in her labs, discussed with Hem/onc agrees to test the patient for Erliciosis, babesiosis, parvovirus, also explained to the patient that Im not able to discharge her since she is at risk for developing infection, since her ANC is around 800, patient was explained that she should not be eating food from outside, cover her face with a mask and to stay away from croud, patient understands. ID and hem/onc consult appreciated. ordered Parvovirus. # Leukopenia # neutropenia # Hiv testing, isolation neutopenic, discussed with ID patient wants to sign AMA, explained all the risk ,sepstic shock fever, coma and . also esplained to the patient the importance of following up with her OBGYN, GC /chlamydia urine ordered.
--- NOTE | 2018-07-16 20:16 | CONSULT ---
Consult - text type - Consultation Consultation Note: Patient seen and exained 32 y/o italian patient , with no significant PMH, with h/o recent influenza like illness 3weeks ago, colonoscopy 2 weeks ago for chronic constipation admitted with lower abdominal pain/fevers 10 days after colonoscopy. Symptos have since resolved. Currently asymptomatic CConsulted for pancytopenia/neutropenia/microcytic anemia ROS currently negative PMH hemithyroidectomy baseline leukopenia Family history 1st cousin from childhood leukemia LMP--06/18/18 eds at home miralax fish oil culturelle Denies smoking/alcohol Last Vital Signs Temp Pulse Resp BP Pulse Ox 98.6 F 65 20 103/60 100 07/16/18 17:00 07/16/18 17:00 07/16/18 17:00 07/16/18 17:00 07/16/18 12:00 Cor: RSR, No murmurs, No gallops Lungs: Clear to P&A Abd: Soft, Normal bowel sounds, No organomegaly Ext:No significant edema Labs/Meds reviewed A/P 32 y/o italian patient , with no significant PMH, with h/o recent influenza like illness 3weeks ago, colonoscopy 2 weeks ago for chronic constipation admitted with lower abdominal pain/fevers 10 days after colonoscopy. Symptos have since resolved. Currently asymptomatic Consulted for pancytopenia/neutropenia/microcytic anemia ?most likely post viral myelosuppression HIV- LDH--normal check B12/folate/iron studies/KEESHA/RF/flowcytometry/cytogenetics/FISH Discussed in great detail with patient that she needs to return to ER for any fevers/symptoms. She is adaant about leaving today although ou recommendation is to stay inpatient for w/u of neutropenia.She understands complications of neutropenia and possible etiologies including marrow pathologies she is to f/u in our office net week. Contact nos. given
[2018-07-17 17:13] LABS: PARV B19 IGG 0.3 index (0.0-0.8); PARV B19 IGM 0.3 index (0.0-0.8)
[2018-07-18 15:24] LABS: HBSAG SCREEN Negative (Negative); HEP A AB, IGM Negative (Negative); HEP B CORE AB, TOT Positive (Negative)
--- NOTE | 2018-07-18 16:15 | PATH ---
Surgical Pathology Report Patient Name: SUNIL SALEEM [facility]. Rec. #: [id number] /Age/Gender: 1985 (Age: 32) / F Account: [id number] Location: [address] [place] [address] Taken: 07/16/2018 Received: 07/17/2018 Reported: 07/18/2018 Physicians: Rani Neely M.D. Specimen(s) Received PERIPHERAL BLOOD Clinical History Pancytopenia Final Diagnosis COMPREHENSIVE FLOW PANEL [facility] [place] shows the following: INTERPRETATION: NO ATYPICAL FLOW CYTOMETRIC FINDINGS SEEN. ADDITIONAL TESTS: Cytogenetics See [facility]ge report ([id number]) for additional details. Electronically Signed Paul Mckeon M.D. Addendum Reported: 07/23/2018 Addendum Diagnosis CYTOGENETIC KARYOTYPE ANALYSIS [facility]: RESULTS: Tissue Culture Failure INTERPRETATION: This unstimulated peripheral blood specimen did not produce any analyzable metaphase cells and, therefore, chromosome analysis is not possible. A bone marrow aspirate, when clinically appropriate, is recommended. See [facility] report for additional details ([id number]). June Rush M.D. Gross Description Received in to green tops tube peripheral blood, sent to [facility] for flow cytometry, cytogenetics and FISH studies. MALCOLM/07/17/2018 elmer/07/17/2018
[2018-07-18 17:16] LABS: BABESIA MICROTI ANTIBODY IGG <1:10 (Neg:<1:10); BABESIA MICROTI ANTIBODY IGM <1:10 (Neg:<1:10)
== END 2018-07-16 18:10 | disposition left against medical advice (07) ==
LOC: JER 00:26 → INTOOBSV 06:36 → UNDOADMOB 06:36 → JERBED 06:36 → UNDOADMOB 09:17 → JERBED 09:17 → J5S 13:14 → INTOOBSV 13:55 → OBSVTOIN 13:55 → J5S 15:08 → JERBED 15:08
PROVIDERS: ADMIT Internal Medicine; ATTEND Internal Medicine
PROC: 3E033NZ Introduction of Analgesics, Hypnotics, Sedatives into Peripheral Vein, Percutaneous Approach (ICD-10-PCS; principal; 2018-07-15)
PROC: 3E033GC Introduction of Other Therapeutic Substance into Peripheral Vein, Percutaneous Approach (ICD-10-PCS; 2018-07-15)
PROC: 3E0337Z Introduction of Electrolytic and Water Balance Substance into Peripheral Vein, Percutaneous Approach (ICD-10-PCS; 2018-07-15)
DX: D72.819 Decreased white blood cell count, unspecified (principal); R10.2 Pelvic and perineal pain; D61.818 Other pancytopenia; D70.9 Neutropenia, unspecified; R50.9 Fever, unspecified
CPT/HCPCS: 36415; 74176-TC; 76830-TC; 80048; 80053; 81003; 82607; 82728; 82747; 83516; 83615; 83690; 83735; 84100; 84439; 84443; 84703; 85014; 85025; 85044; 85384; 85610; 85651; 85730; 86038; 86140; 86340; 86431; 86618; 86704; 86706; 86708; 86747; 86753; 87040; 87086; 87340; 87389; 87804; 88300-TC; 96374; 96375; 99285-25; G0378; J7030

== ENCOUNTER 2018-07-20 20:10 | Emergency (ER) | payer OTHER ==
[2018-07-20 20:30] VITALS: BP 114/76; PULSE 90; TEMP 98.7; BMI 21.2
--- NOTE | 2018-07-20 20:42 | PDOC ---
History of Present Illness - General History Source: Patient, Old Records Exam Limitations: No Limitations - History of Present Illness Initial Comments: 07/20/18 21:21 The patient is a 32-year-old female with a past medical history significant for partial thyroidectomy (2017) presents to the emergency department via EMS with fever. The patient reports around 6-7 o'clock, she checked her temperature multiple times, and it was noted to be 100.7 and decided to come in. The patient reports associated symptoms of increased fatigue, weakness and chills. Denies shortness of breath, nausea, vomiting. Denies recent travel. The patient reports the fevers been ongoing since (07/12/2018). The patient reports her temperature on was 101, which didnt improve and she decided to follow up at [facility] on Monday07/14/2018. During the visit, the patients blood work was significant for WBC of 1.9, and she was admitted. The patient reports during the stay, the team did several test, however, they were unable to find the source for the low WBC. The patient reports on 2018, she AMAed from the hospital. According to the charts, the patient was referred to follow up with Hematology, denies follow up. The patient reports she had a colonoscopy done 2 weeks ago, with 4in polypectomy. The patient reports the polyp was biopsied, without evidence of CA. Allergies: NKDA Family history: Cousin at the patients age from leukemia. PCP: Dr. Myron Garcia/Dr. Phillips. The patient reports she has an appointment tomorrow. GI - Dr. Isaias Peralta <Julissa Kelley - Last Filed: 07/20/18 21:21> <Shawna Brandon - Last Filed: 07/22/18 05:21> - General Chief Complaint: Cold Symptoms Stated Complaint: FEVER Time Seen by Provider: 07/20/18 20:23 Past History <Julissa Kelley - Last Filed: 07/20/18 21:21> - Past Medical History Cancer: Yes (THYROID) COPD: No - Reproductive History Therapeutic (s) & number: No - Suicide/Smoking/Psychosocial Hx Smoking History: Never smoked Hx Alcohol Use: No Drug/Substance Use Hx: No <Shawna Brandon - Last Filed: 07/22/18 05:21> - Past Medical History Allergies/Adverse Reactions: Allergies Allergy/AdvReac Type Severity Reaction Status Date / Time No Known Allergies Allergy Verified 07/15/18 00:53 Review of Systems - Review of Systems Able to Perform ROS?: Yes Comments:: 07/20/18 21:21 GENERAL/CONSTITUTIONAL: +fever, chills,fatigue and weakness. HEAD, EYES, EARS, NOSE AND THROAT: No change in vision. No ear pain or discharge. No sore throat. CARDIOVASCULAR: No chest pain or shortness of breath. RESPIRATORY: No cough, wheezing, or hemoptysis. GASTROINTESTINAL: No nausea, vomiting, diarrhea or constipation. GENITOURINARY: No dysuria, frequency, or change in urination. MUSCULOSKELETAL: No joint or muscle swelling or pain. No neck or back pain. SKIN: No rash NEUROLOGIC: No headache, vertigo, loss of consciousness, or change in strength/ sensation. ENDOCRINE: No increased thirst. No abnormal weight change. HEMATOLOGIC/LYMPHATIC: No anemia, easy bleeding, or history of blood clots. ALLERGIC/IMMUNOLOGIC: No hives or skin allergy. <Julissa Kelley - Last Filed: 07/20/18 21:21> *Physical Exam - Vital Signs Last Vital Signs Temp Pulse Resp BP Pulse Ox 98.7 F 90 16 114/76 99 07/20/18 20:11 07/20/18 20:11 07/20/18 20:11 07/20/18 20:11 07/20/18 20:11 - Physical Exam Comments: 07/20/18 21:22 GENERAL: Awake, alert, and fully oriented, in no acute distress HEAD: No signs of trauma EYES: PERRLA, EOMI, sclera anicteric, conjunctiva clear ENT: Auricles normal inspection, hearing grossly normal, nares patent, oropharynx clear without exudates. Moist mucosa NECK: Normal ROM, supple, no lymphadenopathy, JVD, or masses LUNGS: Breath sounds equal, clear to auscultation bilaterally. No wheezes, and no crackles HEART: Regular rate and rhythm, normal S1 and S2, no murmurs, rubs or gallops ABDOMEN: Soft, nontender, normoactive bowel sounds. No guarding, no rebound. No masses EXTREMITIES: Normal range of motion, no edema. No clubbing or cyanosis. No cords, erythema, or tenderness NEUROLOGICAL: Cranial nerves II through XII grossly intact. Normal speech, normal gait SKIN: Warm, Dry, normal turgor, no rashes or lesions noted. <Julissa Kelley - Last Filed: 07/20/18 21:21> - Vital Signs Last Vital Signs Temp Pulse Resp BP Pulse Ox 98.7 F 90 16 114/76 99 07/20/18 20:11 07/20/18 20:11 07/20/18 20:11 07/20/18 20:11 07/20/18 20:11 <Shawna Brandon - Last Filed: 07/22/18 05:21> Moderate Sedation - Procedure Monitoring Vital Signs: Procedure Monitoring Vital Signs Temperature 98.7 F 07/20/18 20:11 Pulse Rate 90 07/20/18 20:11 Respiratory Rate 16 07/20/18 20:11 Blood Pressure 114/76 07/20/18 20:11 O2 Sat by Pulse Oximetry (%) 99 07/20/18 20:11 <Julissa Kelley - Last Filed: 07/20/18 21:21> - Procedure Monitoring Vital Signs: Procedure Monitoring Vital Signs Temperature 98.7 F 07/20/18 20:11 Pulse Rate 90 07/20/18 20:11 Respiratory Rate 16 07/20/18 20:11 Blood Pressure 114/76 07/20/18 20:11 O2 Sat by Pulse Oximetry (%) 99 07/20/18 20:11 <Shawna Brandon - Last Filed: 07/22/18 05:21> ED Treatment Course - LABORATORY CBC & Chemistry Diagram: 07/20/18 21:30 07/20/18 21:30 <Shawna Brandon - Last Filed: 07/22/18 05:21> Medical Decision Making - Medical Decision Making Documentation has been prepared under my direction and personally reviewed by me in its entirety. I attest that this documented accurately reflects all work, treatment, procedures and medical decision making performed by me. As noted above, this 32-year-old woman is brought in by ambulance after she had a history of fever 100.7 earlier this evening at home. The patient had been found to be neutropenic on presentation at [facility] a week ago. The patient was hospitalized but eventually signed out AMA. Follow-up with her general doctor had been scheduled for tomorrow. Other than fever, the patient does not have significant symptoms. CBC redrawn tonight and this found that patient has over 1500 neutrophil count; therefore, the patient can be discharged safely. This was explained to the patient felt quite relieved. She will follow-up with her PMD tomorrow as previously scheduled <Shawna Brandon - Last Filed: 07/22/18 05:21> *DC/Admit/Observation/Transfer - Attestations Scribe Attestion: 07/20/18 21:22 Documentation prepared by Julissa Kelley, acting as medical staff manager for Shawna Brandon MD. <Julissa Kelley - Last Filed: 07/20/18 21:21> <Shawna Brandon - Last Filed: 07/22/18 05:21> Diagnosis at time of Disposition: History of neutropenia - Discharge Dispostion Disposition: HOME Condition at time of disposition: Stable - Patient Instructions Printed Discharge Instructions: DI for Fever (Symptom) -- Adult Additional Instructions: Tylenol/ibuprofen as needed for fever Drink plenty of water Follow-up with your doctor tomorrow as scheduled Return to ER if you have severe, persistent fever or develop new severe symptoms
[2018-07-20 21:45] LABS: BASO % 2.2 % (0-2.0); EOS % 0.2 % (0-4.5); HEMOGLOBIN 8.4 GM/dl (10.7-15.3); LYMPH % 11.5 % (8-40); MCH 21.5 pg (25.7-33.7); MCHC 30.1 g/dl (32.0-36.0); MEAN CELL VOLUME 71.4 fl (80-96); MEAN PLT VOLUME 8.7 fl (7.5-11.1); MONO % 7.2 % (3.8-10.2); NEUT % 78.9 % (42.8-82.8); PLATELET COUNT 239 K/MM3 (134-434); RBC 3.92 M/mm3 (3.60-5.2); RDW 17.1 % (11.6-15.6)
[2018-07-20 23:42] LABS: ALBUMIN 3.8 g/dl (3.4-5.0); ALK PHOS 31 U/L (45-117); ANION GAP 6 MMOL/L (8-16); BILIRUBIN,TOTAL 0.5 mg/dl (0.2-1); BLOOD UREA NITROGEN 6 mg/dl (7-18); CALCIUM 8.2 mg/dl (8.5-10); CHLORIDE 103 mmol/L (98-107); CO2 25 mmol/L (21-32); CREATININE 0.4 mg/dl (0.55-1.3); GLUCOSE,RANDOM 126 mg/dl (74-106); POTASSIUM 3.7 mmol/L (3.5-5.1); SGOT/AST 24 U/L (15-37); SGPT/ALT 28 U/L (13-61); SODIUM 134 mmol/L (136-145); TOT PROT 6.4 g/dl (6.4-8.2)
== END 2018-07-20 23:53 | disposition home or self-care (01) ==
LOC: FER 20:10
DX: D70.9 Neutropenia, unspecified (principal)
CPT/HCPCS: 36415; 80053; 85025; 99281-25